=== PATIENT | male | born 1955 | race Caucasian/White ===

== ENCOUNTER 2021-12-10 09:23 | Outpatient (CLI) | payer MEDICARE ==
[2021-12-10 11:42] LABS: Anion Gap 15 mmol/L (10-20); BUN (Urea Nitrogen) 10 mg/dL (8.4-25.7); Calc. Creatinine Clearance 0 mL/min (70-130); Calcium 9.4 mg/dL (7.8-10.44); Carbon Dioxide 28 mmol/L (23-31); Chloride 103 mmol/L (98-107); Glucose 110 mg/dL (80-115); Potassium 4.2 mmol/L (3.5-5.1); Sodium 142 mmol/L (136-145)
[2021-12-10 17:37] LABS: SARS-CoV-2 PCR by NAA Not Detected (NotDetected)
== END 2021-12-10 09:24 | disposition home or self-care (01) ==
LOC: LABBT 09:23
PROVIDERS: ATTEND Neurological Surgery
DX: Z01.818 Encounter for other preprocedural examination (principal); M54.16 Radiculopathy, lumbar region; Z20.822 Contact with and (suspected) exposure to COVID-19
CPT/HCPCS: 80048; 93005; U0003; U0005; 93010

== ENCOUNTER 2021-12-15 05:37 | Day surgery (SDC) | payer MEDICARE ==
[2021-12-09 10:43] VITALS: BMI 21.6
[2021-12-15] MEDS ORDERED: EPINEPHrine 1 MG/ML AMP ONE ×2 (06:11→07:44)
[2021-12-15] MEDS ORDERED: Bupivacaine PF 0.5% 30 ML VIAL ONE ×2 (06:11→07:44)
[2021-12-15] MEDS ORDERED: Thrombin 5000 UNITS/5 ML VIAL ONE (06:11)
[2021-12-15] MEDS ORDERED: Fentanyl 250 MCG/5 ML VIAL ONE ×2 (06:23→08:30)
[2021-12-15] MEDS ORDERED: Famotidine/PF 20 mg/2ml Vial ONE (06:24)
[2021-12-15] MEDS ORDERED: SUGAMMADEX SODIUM 200 MG/2 ML VIAL ONE (06:24)
[2021-12-15] MEDS ORDERED: Midazolam HCl 2 mg/2 ml Vial ONE (06:44)
[2021-12-15] MEDS ORDERED: ceFAZolin (BATCH) 2 GM/100 ML BAG ONE ×2 (06:56→10:43)
[2021-12-15] MEDS ORDERED: Ketorolac Tromethamine 30 MG/ML VIAL ONE (07:01)
[2021-12-15] MEDS ORDERED: Metoclopramide HCl 10 MG/2 ML VIAL ONE (07:01)
[2021-12-15] MEDS ORDERED: PROPOFOL 200 MG/20 ML VIAL ONE (07:01)
[2021-12-15] MEDS ORDERED: ePHEDrine 50 MG/ML VIAL ONE (07:01)
[2021-12-15] MEDS ORDERED: Dexamethasone 20 MG/5 ML VIAL ONE (07:01)
[2021-12-15] MEDS ORDERED: PHENYLEPHRINE-NS 100 MCG/ML 10 ML SYRINGE ONE (07:01)
[2021-12-15] MEDS ORDERED: Rocuronium Bromide 10 MG/ML (10ML VIAL) ONE (07:01)
[2021-12-15] MEDS ORDERED: Lidocaine 1% PF 5 ML VIAL ONE (07:01)
[2021-12-15] MEDS ORDERED: Ondansetron PF 4 MG/2 ML Vial ONE (07:01)
[2021-12-15] MEDS ORDERED: Acetaminophen/Codeine 30-300mg Tablet ONE (10:10)
== END 2021-12-15 11:30 | disposition home or self-care (01) ==
LOC: SDC 05:37
PROVIDERS: ATTEND Neurological Surgery
PROC: 01NB0ZZ Release Lumbar Nerve, Open Approach (ICD-10-PCS; principal; 2021-12-15)
DX: M48.061 Spinal stenosis, lumbar region without neurogenic claudication (principal); M54.16 Radiculopathy, lumbar region; M21.371 Foot drop, right foot; E11.42 Type 2 diabetes mellitus with diabetic polyneuropathy; Z87.891 Personal history of nicotine dependence; Z79.899 Other long term (current) drug therapy
CPT/HCPCS: 76000; J0171; J0690; J1100; J1885; J2250; J2405; J2704; J2765; J3010; J3490; S0020; S0028

== ENCOUNTER 2022-03-21 01:33 | Inpatient (IN) | payer MEDICARE ==
[2022-03-21] MEDS ORDERED: HumaLOG 300 UNITS/3 ML VIAL SC PRN ×2 (03:48)
[2022-03-21] MEDS ORDERED: Dextrose 5% in Water 1,000 ML IV PRN (03:48)
[2022-03-21] MEDS ORDERED: Dextrose 50% Abboject 50 ML SYRINGE SLOW IVP PRN (03:48)
[2022-03-21] MEDS ORDERED: Morphine 2 MG/ML VIAL SLOW IVP PRN ×2 (03:51→04:06)
[2022-03-21 04:02] VITALS: BMI 20.1
[2022-03-21] MEDS: Morphine 4 MG/ML VIAL SLOW IVP PRN (04:26)
[2022-03-21] MEDS ORDERED: Lactated Ringer's 1,000 ML IV SCH (04:30)
[2022-03-21 06:22] LABS: Hemoglobin 13.5 g/dL (14.0-18.0); Mean Corpuscular Hemoglobin 33.5 pg (27.0-31.0); Mean Corpuscular Volume 98.4 fL (78.0-98.0); Mean Platelet Volume 8.6 fL (7.4-10.4); Platelet Count 122 thou/uL (130-400); RBC Distribution Width 12.7 % (11.5-14.5); Red Blood Cell (RBC) Count 4.03 mill/uL (4.70-6.10); White Blood Cell (WBC) Count 8.3 thou/uL (4.8-10.8)
[2022-03-21 06:45] LABS: Band 33 % (5-11); Lymphocytes 4 % (21-51); MDiff Complete? YES; Neutrophil 63 % (42-75); Platelet Morphology Comment Appears Decreased; Toxic Granulation SLIGHT
[2022-03-21 07:01] LABS: HBSAB Concentration Less than 8.00 mIU/mL; HBSAg Index 0.29 S/CO (0-0.99); HIV (1/2) Antibody/Antigen Non-Reactive (NonReactive); HIV 1/2 INDEX 0.08 S/CO (<1.00); Hep B Surf AB Non-Reactive (NonReactive); Hep B Surf Ag Non-Reactive S/CO (NonReactive); Hep C IgG Ab Non-Reactive (NonReactive); Hep C Index 0.15 S/CO (0-0.79)
[2022-03-21 07:12] LABS: ALT (SGPT) 53 U/L (8-55); AST (SGOT) 49 U/L (5-34); Alkaline Phosphatase 115 U/L (40-110); Anion Gap 17 mmol/L (10-20); BUN (Urea Nitrogen) 38 mg/dL (8.4-25.7); Calc. Creatinine Clearance 85 mL/min (70-130); Calcium 9.2 mg/dL (7.8-10.44); Carbon Dioxide 28 mmol/L (23-31); Chloride 100 mmol/L (98-107); Glucose 197 mg/dL (80-115); Potassium 4.1 mmol/L (3.5-5.1); Sodium 141 mmol/L (136-145)
[2022-03-21 07:36] LABS: Bacteria/HPF 2+ HPF (None Seen); Bilirubin Negative (Negative); Blood, Urine 1+ (Negative); Clarity Turbid (Clear); Glucose, Urine (Dipstick) Normal (Negative); Ketone, Urine 20 mg/dL (Negative); Leukocyte 500 Leu/uL (Negative); Nitrite Negative (Negative); Protein, Urine (Dipstick) 20 mg/dL (Neg-Trace); Specific Gravity, Urine 1.018 (1.002-1.036); Squamous Epithelial 0-3 HPF (0-3); Urobilinogen Normal mg/dL (Less than 2); WBC/HPF Greater than 50 HPF (0-3); pH, Urine 5.5 (5.0-9.0)
[2022-03-21 07:40] LABS: Urine Culture Reflex Yes Yes
[2022-03-21 08:19] LABS: SARS-CoV-2 NAA Rapid Test Not Detected (NotDetected)
[2022-03-21] MEDS: Gabapentin 300 MG CAP PO SCH ×3 (08:43→22:27)
[2022-03-21] MEDS: Tamsulosin HCl 0.4 MG CAP PO SCH (08:45)
[2022-03-21] MEDS: Acetaminophen 325 MG TAB PO PRN (08:45)
[2022-03-21] MEDS ORDERED: Finasteride 5 MG TAB PO SCH (09:45)
[2022-03-21] MEDS ORDERED: Senokot 8.6 MG TAB PO PRN ×2 (11:18)
[2022-03-21] MEDS ORDERED: Milk Of Magnesia 30 ML UDCUP PO PRN (11:18)
[2022-03-21] MEDS ORDERED: Polyethylene Glycol 3350 17 GM Packet PO SCH (11:30)
[2022-03-21 15:14] LABS: Syphilis Antibody Nonreactive (Nonreactive); Syphilis Antibody Index 0.03 S/CO (<1.00 Non-Reactive)
[2022-03-21 22:20] LABS: Amphetamine Not Detected (NotDetected); Barbiturates Screen Not Detected (NotDetected); Benzodiazepine Screen Not Detected (NotDetected); Cocaine Metabolite Screen Not Detected (NotDetected); Methadone Not Detected (NotDetected); Methamphetamine Not Detected (NotDetected); Opiate Screen Detected (NotDetected); Oxycodone Screen Not Detected (NotDetected); Phencyclidine (PCP) Not Detected (NotDetected); THC/Cannabinoid Screen Detected (NotDetected); Tricyclic Screen Not Detected (NotDetected)
[2022-03-21] MEDS: DULoxetine 30 MG CAP PO SCH (22:26)
[2022-03-22] MEDS: Morphine 4 MG/ML VIAL SLOW IVP PRN (03:45)
[2022-03-22 07:08] LABS: Hemoglobin 13.9 g/dL (14.0-18.0); Mean Corpuscular HGB CONC 32.6 g/dL (32.0-36.0); Mean Corpuscular Hemoglobin 32.9 pg (27.0-31.0); Mean Platelet Volume 9.2 fL (7.4-10.4); Platelet Count 135 thou/uL (130-400); RBC Distribution Width 12.9 % (11.5-14.5); Red Blood Cell (RBC) Count 4.22 mill/uL (4.70-6.10); White Blood Cell (WBC) Count 11.9 thou/uL (4.8-10.8)
[2022-03-22 07:31] LABS: ALT (SGPT) 41 U/L (8-55); AST (SGOT) 25 U/L (5-34); Albumin 2.9 g/dL (3.4-4.8); Alkaline Phosphatase 115 U/L (40-110); Anion Gap 13 mmol/L (10-20); BUN (Urea Nitrogen) 35 mg/dL (8.4-25.7); Bilirubin, Total 1.2 mg/dL (0.2-1.2); Calc. Creatinine Clearance 85 mL/min (70-130); Calcium 8.8 mg/dL (7.8-10.44); Carbon Dioxide 32 mmol/L (23-31); Chloride 98 mmol/L (98-107); Globulin 2.8 g/dL (2.4-3.5); Glucose 261 mg/dL (80-115); Potassium 4.1 mmol/L (3.5-5.1); Protein, Total 5.7 g/dL (5.8-8.1); Sodium 139 mmol/L (136-145)
[2022-03-22] MEDS ORDERED: Non-Formulary Item 1 EACH (Acetaminophen With Codeine [Acetaminophen-Cod #4 Tablet] 1 EAC PO PRN (08:33)
[2022-03-22] MEDS ORDERED: Gabapentin 300 MG CAP PO SCH (08:45)
[2022-03-22] MEDS ORDERED: Cholecalciferol 1,000 UNITS (25 MCG) TAB PO SCH (09:00)
[2022-03-22] MEDS: Acetaminophen/Codeine 30-300mg Tablet PO PRN ×3 (09:34→17:58)
[2022-03-22] MEDS: Cholecalciferol 1,000 UNITS (25 MCG) TAB PO SCH (09:35)
[2022-03-22] MEDS: Acetaminophen 325 MG TAB PO PRN ×2 (09:35→17:59)
[2022-03-22] MEDS: Tamsulosin HCl 0.4 MG CAP PO SCH (09:39)
[2022-03-22] MEDS: Polyethylene Glycol 3350 17 GM Packet PO SCH (09:39)
[2022-03-22] MEDS: Finasteride 5 MG TAB PO SCH (09:40)
[2022-03-22 10:37] LABS: Band 21 % (5-11); Lymphocytes 7 % (21-51); Monocytes 1 % (0-10); Neutrophil 68 % (42-75); Reactive Lymphocytes 3 % (0-10)
[2022-03-22 10:38] LABS: MDiff Complete? YES; Platelet Morphology Comment Appears Adequate; Polychromasia SLIGHT = 2-3 cells (100X) (0-2/hpf)
[2022-03-22] MEDS ORDERED: metFORMIN 500 MG TAB PO SCH (13:30)
[2022-03-22] MEDS: Gabapentin 300 MG CAP PO SCH ×2 (14:14→20:35)
[2022-03-22] MEDS: DULoxetine 30 MG CAP PO SCH (20:35)
[2022-03-23] MEDS: Acetaminophen/Codeine 30-300mg Tablet PO PRN ×4 (03:12→21:04)
[2022-03-23] MEDS ORDERED: Gabapentin 300 MG CAP PO SCH ×2 (08:00→08:30)
[2022-03-23] MEDS: Acetaminophen 325 MG TAB PO PRN ×3 (09:27→21:04)
[2022-03-23] MEDS: Tamsulosin HCl 0.4 MG CAP PO SCH (09:28)
[2022-03-23] MEDS: Cholecalciferol 1,000 UNITS (25 MCG) TAB PO SCH (09:29)
[2022-03-23] MEDS: Finasteride 5 MG TAB PO SCH (09:29)
[2022-03-23] MEDS: metFORMIN 500 MG TAB PO SCH (09:29)
[2022-03-23] MEDS: Polyethylene Glycol 3350 17 GM Packet PO SCH (09:31)
[2022-03-23] MEDS ORDERED: Milk Of Magnesia 30 ML UDCUP PO SCH (10:00)
[2022-03-23] MEDS: Gabapentin 300 MG CAP PO SCH ×2 (16:00→21:04)
[2022-03-23] MEDS: DULoxetine 30 MG CAP PO SCH (21:03)
[2022-03-24] MEDS: Acetaminophen/Codeine 30-300mg Tablet PO PRN ×2 (03:18→20:58)
[2022-03-24] MEDS: Acetaminophen 325 MG TAB PO PRN (03:18)
[2022-03-24] MEDS: Gabapentin 300 MG CAP PO SCH ×3 (05:29→21:00)
[2022-03-24 06:22] LABS: #Lymphocytes 0.7 thou/uL (1.20-3.40); #Monocytes 0.4 thou/uL (0.11-0.59); #Neutrophils 5.6 thou/uL (1.40-6.50); %Basophils 0.1 % (0.0-1.0); %Eosinophils 0.6 % (0.0-10.0); %Lymphocytes 9.9 % (21.0-51.0); %Monocytes 6.4 % (0.0-10.0); %Neutrophils 83.1 % (42.0-75.0); Hemoglobin 13.1 g/dL (14.0-18.0); Mean Corpuscular HGB CONC 33.1 g/dL (32.0-36.0); Mean Corpuscular Hemoglobin 32.9 pg (27.0-31.0); Mean Corpuscular Volume 99.3 fL (78.0-98.0); Mean Platelet Volume 8.2 fL (7.4-10.4); Platelet Count 175 thou/uL (130-400); RBC Distribution Width 12.8 % (11.5-14.5); Red Blood Cell (RBC) Count 3.98 mill/uL (4.70-6.10); White Blood Cell (WBC) Count 6.8 thou/uL (4.8-10.8)
[2022-03-24 06:48] LABS: Anion Gap 13 mmol/L (10-20); BUN (Urea Nitrogen) 24 mg/dL (8.4-25.7); Calc. Creatinine Clearance 99 mL/min (70-130); Calcium 8.4 mg/dL (7.8-10.44); Carbon Dioxide 28 mmol/L (23-31); Chloride 103 mmol/L (98-107); Glucose 108 mg/dL (80-115); Potassium 4.2 mmol/L (3.5-5.1); Sodium 140 mmol/L (136-145)
[2022-03-24] MEDS ORDERED: Gabapentin 300 MG CAP PO SCH (07:00)
[2022-03-24] MEDS ORDERED: Milk Of Magnesia 30 ML UDCUP PO SCH (09:00)
[2022-03-24] MEDS: Polyethylene Glycol 3350 17 GM Packet PO SCH ×2 (09:03→09:04)
[2022-03-24] MEDS: metFORMIN 500 MG TAB PO SCH (09:03)
[2022-03-24] MEDS: Tamsulosin HCl 0.4 MG CAP PO SCH (09:03)
[2022-03-24] MEDS: Finasteride 5 MG TAB PO SCH (09:04)
[2022-03-24] MEDS: Cholecalciferol 1,000 UNITS (25 MCG) TAB PO SCH (09:04)
[2022-03-24] MEDS ORDERED: DULoxetine 60 MG CAP PO SCH (21:00)
[2022-03-25] MEDS: Acetaminophen 325 MG TAB PO PRN (02:14)
[2022-03-25] MEDS: Acetaminophen/Codeine 30-300mg Tablet PO PRN ×3 (04:14→15:37)
[2022-03-25] MEDS: Gabapentin 300 MG CAP PO SCH (05:34)
[2022-03-25] MEDS ORDERED: Non-Formulary Item 1 EACH (Tizanidine Hcl [Tizanidine Hcl] 4 MG Capsule) PO PRN (07:32)
[2022-03-25] MEDS ORDERED: tiZANidine HCl 4 MG TAB PO PRN ×2 (07:43→18:00)
[2022-03-25] MEDS ORDERED: Enoxaparin Sodium 40 MG/0.4 ML SYRINGE SC SCH (09:00)
[2022-03-25] MEDS: metFORMIN 500 MG TAB PO SCH (10:29)
[2022-03-25] MEDS: Tamsulosin HCl 0.4 MG CAP PO SCH (10:30)
[2022-03-25] MEDS: Cholecalciferol 1,000 UNITS (25 MCG) TAB PO SCH (10:30)
[2022-03-25] MEDS: Finasteride 5 MG TAB PO SCH (10:30)
[2022-03-25] MEDS ORDERED: Lactated Ringer's 1,000 ML IV SCH (12:30)
[2022-03-25] MEDS ORDERED: Gabapentin 300 MG CAP PO SCH (15:00)
[2022-03-25 17:04] VITALS: BP 117/69; TEMP 98.8
== END 2022-03-25 18:06 | DRG 551 ==
LOC: SJJU 03:05
PROVIDERS: ADMIT Student in an Organized Health Care Education/Training Program; ATTEND Emergency Medicine
DX: M48.061 Spinal stenosis, lumbar region without neurogenic claudication (principal); E43 Unspecified severe protein-calorie malnutrition; N13.2 Hydronephrosis with renal and ureteral calculous obstruction; Z20.822 Contact with and (suspected) exposure to COVID-19; R33.9 Retention of urine, unspecified; D69.6 Thrombocytopenia, unspecified; E11.40 Type 2 diabetes mellitus with diabetic neuropathy, unspecified; R74.8 Abnormal levels of other serum enzymes; K83.8 Other specified diseases of biliary tract; N41.8 Other inflammatory diseases of prostate; Z68.20 Body mass index [BMI] 20.0-20.9, adult; Z79.899 Other long term (current) drug therapy; Z90.89 Acquired absence of other organs; Z98.890 Other specified postprocedural states; Z82.49 Family history of ischemic heart disease and other diseases of the circulatory system; Z87.891 Personal history of nicotine dependence
CPT/HCPCS: 36415; 36416; 72148; 80048; 80053; 80306; 81001; 83036; 84134; 85025; 85060; 86706; 86780; 86803; 87086; 87186; 87340; 87389; J1650; J1815; J2270; J7120; U0002